=== PATIENT | female | born 1990 | race African-American/Black ===

== ENCOUNTER 2023-09-13 22:39 | Emergency (ER) | payer OTHER ==
[2023-09-13 22:44] VITALS: BMI 23.3
[2023-09-14] MEDS ORDERED: diazePAM 5 MG TABLET PO ONE (00:45)
[2023-09-14] MEDS ORDERED: diazePAM 5 MG TABLET ONE (00:51)
[2023-09-14 03:25] VITALS: RESP 18
[2023-09-14] MEDS ORDERED: IBUPROFEN 600 MG TABLET (FP) PO ONE ×2 (05:29→05:40)
[2023-09-14] MEDS ORDERED: LIDOCAINE 5% TOPICAL PATCH TP ONE (05:30)
[2023-09-14] MEDS ORDERED: LIDOCAINE 4% PATCH TP ONE (05:40)
[2023-09-14 07:42] LABS: POTASSIUM 4.1 mmol/L (3.5-5.1)
[2023-09-14 07:44] LABS: ALBUMIN 3.1 g/dl (3.4-5.0); BLOOD UREA NITROGEN 11.8 mg/dL (7-18); CALCIUM 8.3 mg/dL (8.5-10.1)
[2023-09-14] MEDS ORDERED: SODIUM CHLORIDE 0.9% 500 ML INFUS.BAG IV ONE ×2 (07:44→07:57)
[2023-09-14 07:47] LABS: CREATININE 0.7 mg/dL (0.55-1.3)
[2023-09-14 07:49] LABS: BILIRUBIN,TOTAL 0.7 mg/dL (0.2-1)
[2023-09-14 08:13] LABS: BASO % 0.5 % (0-2.0); EOS % 1.2 % (0-4.5); HEMATOCRIT 38.7 % (32.4-45.2); HEMOGLOBIN 12.9 GM/dL (10.7-15.3); LYMPH % 36.5 % (8-40); MCH 25.9 pg (25.7-33.7); MCHC 33.3 g/dl (32.0-36.0); MEAN PLT VOLUME 11.1 fl (7.5-11.1); MONO % 12.3 % (3.8-10.2); NEUT % 49.5 % (42.8-82.8); PLATELET COUNT 232 10^3/uL (134-434); RBC 4.96 M/mm3 (3.60-5.2); RDW 14.3 % (11.6-15.6); WHITE BLOOD COUNT 4.4 K/mm3 (4.0-10.0)
[2023-09-14 08:36] LABS: INR 1.16 (0.83-1.09); POTASSIUM 3.8 mmol/L (3.5-5.1); PROTHROMBIN TIME (PATIENT) 13.4 SEC (9.7-13.0)
[2023-09-14 08:39] LABS: CALCIUM 8.4 mg/dL (8.5-10.1)
[2023-09-14 08:40] LABS: ALBUMIN 3.3 g/dl (3.4-5.0); BLOOD UREA NITROGEN 12.6 mg/dL (7-18)
[2023-09-14 08:43] LABS: CREATININE 0.7 mg/dL (0.55-1.3)
[2023-09-14 08:44] LABS: TOT PROT 7.5 g/dl (6.4-8.2)
[2023-09-14] MEDS ORDERED: KETOROLAC TROMETHAMINE 30 MG/1 ML VIAL IM ONE (10:58)
[2023-09-14 11:08] VITALS: BP 97/66; PULSE 66; TEMP 97.8
[2023-09-14] MEDS ORDERED: KETOROLAC TROMETHAMINE 30 MG/1 ML VIAL ONE (11:12)
[2023-09-14] MEDS ORDERED: LIDOCAINE PATCH REMOVAL MC SCH (22:00)
== END 2023-09-14 11:40 | disposition home or self-care (01) ==
LOC: JER 22:39
PROC: 3E0233Z Introduction of Anti-inflammatory into Muscle, Percutaneous Approach (ICD-10-PCS; principal; 2023-09-14)
DX: M54.2 Cervicalgia (principal); M62.838 Other muscle spasm; Z20.822 Contact with and (suspected) exposure to COVID-19
CPT/HCPCS: 0241U-QW; 36415; 70450-TC; 72125-TC; 80053; 85025; 85610; 87040; 87651; 99284-25